=== PATIENT | male | born 1980 ===

== ENCOUNTER 2017-05-09 03:21 | Emergency (ER) | payer MEDICAID ==
[2017-05-09] MEDS ORDERED: IPRATROPIUM/ALBUTEROL 3 ML DEYVIAL IH ONE (03:41)
--- NOTE | 2017-05-09 03:43 | EDPHY ---
H & P Stated Complaint: coughing sore throat Time Seen by Provider: 05/09/17 03:32 HPI/ROS: HPI The patient presents with sore throat and cough which has been present for the last several days but was worse tonight. He says he was in the shower and was coughing and felt that his airways were closing. He has a cough that is productive of brown mucus he says. He has been seen for this at [facility]. He says his throat is hurting him currently. He denies any fever or shortness of breath. He does admit to using methamphetamine recently and is a 1 pack per day tobacco smoker and daily marijuana smoker.. REVIEW OF SYSTEMS Constitutional: No fever, no chills. Eyes: No discharge. ENT: No sore throat. Cardiovascular: No chest pain, no palpitations. Respiratory: See HPI Gastrointestinal: No abdominal pain, no vomiting. Genitourinary: No hematuria. Musculoskeletal: No back pain. Skin: No rashes. Neurological: No headache. PMHx: Healthy Soc Hx: Recently incarcerated, now on parole, heavy smoker, marijuana use, methamphetamine and cocaine use FHx: Denies PHYSICAL General Appearance: Alert, anxious and agitated Eyes: Pupils equal and round no pallor or injection ENT, Mouth: Mucous membranes moist, posterior pharynx clear Respiratory: There are no retractions, lungs are clear to auscultation Cardiovascular: Tachycardic rate and regular rhythm Gastrointestinal: Abdomen is soft and non-tender, no masses, bowel sounds normal Neurological: A&O, moves all extremities Skin: Warm and dry, no rashes Musculoskeletal: Neck is supple non tender Extremities: symmetrical, full range of motion Psychiatric: Patient is oriented X 3, there is no agitation Source: Patient Exam Limitations: No limitations - Personal History Current Tetanus/Diphtheria Vaccine: Yes Current Tetanus Diphtheria and Acellular Pertussis (TDAP): Yes - Medical/Surgical History Hx Asthma: No Hx Chronic Respiratory Disease: No Hx Diabetes: No Hx Cardiac Disease: No Hx Renal Disease: No Hx Cirrhosis: No Hx Alcoholism: No Hx HIV/AIDS: No Hx Splenectomy or Spleen Trauma: No - Social History Smoking Status: Current every day smoker Constitutional: Initial Vital Signs Temperature (C) 36.9 C 05/09/17 03:24 Heart Rate 114 H 05/09/17 03:24 Respiratory Rate 18 05/09/17 03:24 Blood Pressure 127/79 H 05/09/17 03:24 O2 Sat (%) 95 05/09/17 03:24 O2 Delivery Mode Room Air Allergies/Adverse Reactions: codeine Allergy (Verified 05/09/17 03:24) Home Medications: Medication Instructions Recorded NK [No Known Home Meds] 05/09/17 Medical Decision Making - Diagnostics Imaging Results: Chest x-ray two view shows no infiltrate, no pneumothorax, interpreted by me, radiology interpretation is pending. Imaging: I viewed and interpreted images myself Differential Diagnosis: This is a 36-year-old male, currently residing at a homeless [facility]dc after being incarcerated with history of 1 pack per day smoking use and methamphetamine use, presenting with cough and sore throat. Differential diagnosis includes viral URI, bronchitis, COPD, pneumonia, pneumothorax. In the emergency department, patient was given DuoNeb and chest x-ray was performed. He did not improved with DuoNeb. Chest x-ray is unremarkable. He does not have any ongoing coughing, does not have any vomiting. He was upset that we did not reach a clear diagnosis. I feel he may have upper respiratory tract infection. He appears to be intoxicated on methamphetamine as well and this may be contributing to some of his agitation. He will be discharged from the emergency department. I have advised him that he can [facility]. - Data Points Medications Given: Discontinued Medications Albuterol/Ipratropium (Duoneb) 3 ml IH EDNOW ONE Stop: 05/09/17 03:42 Last Admin: 05/09/17 03:53 Dose: 3 ml Departure - Departure Disposition: Home, Routine, Self-Care Clinical Impression: Sore throat Condition: Good Instructions: Dyspnea (ED) Additional Instructions: Please return to the emergency department if you are worse in any way. Referrals: [facility],. [Clinic] - As per Instructions
[2017-05-09 04:33] VITALS: BP 137/80; PULSE 111; RESP 16; TEMP 98.6; O2SAT 97
== END 2017-05-09 04:33 | disposition home or self-care (01) ==
DX: J02.9 Acute pharyngitis, unspecified (principal); F17.200 Nicotine dependence, unspecified, uncomplicated